=== PATIENT | male | born 1985 | race Caucasian/White ===

== ENCOUNTER 2019-05-12 15:47 | Emergency (ER) | payer SELFPAY ==
[~2019-05-12] VITALS: Ht 185 cm; Wt 118.0 kg
--- NOTE | 2019-05-12 16:16 | ED Chest Pain ---
General Chief Complaint: Chest Pain Stated Complaint: CHEST PAIN Nursing Triage Note: PT AMBULATE TO ROOM 09 WITHOUT DIFFICULTY. PT STATES CHEST PAIN STARTED THIS MORNING WHILE DRINKING COFFEE AND SMOKING A CIGARETTE. PT STATES THE PAIN RETURN SEVERAL TIMES TODAY AND NOW FEELS PRESSURE ON HIS CHEST. Nursing Sepsis Screen: No Definite Risk Source: patient Exam Limitations: no limitations History of Present Illness Date Seen by Provider: May 12, 2019 Time Seen by Provider: 16:12 Initial Comments To ER with sharp left-sided chest pain lasting 30-45 seconds at a time that has occurred 3-4 times today. Occasional shortness of breath. States he is otherwise healthy except for history of colon cancer. (Pathology and procedure report obtained from his colonoscopy at [facility] on 09/20/17. This shows colon polyp, 35cm polypectomy. Tubular adenoma measuring 1.5cm fully removed with stalk margin clear and no glandular atypia or malignancy identified) Timing/Duration: intermittent Severity/Quality: moderate Location: central Radiation: no radiation Activities at Onset: none ASA po EMAIL PRODUCTION SPECIALIST: No NTG SL EMAIL PRODUCTION SPECIALIST: No Allergies and Home Medications Patient Home Medication List Home Medication List Reviewed: Yes Review of Systems Review of Systems Constitutional: see HPI EENTM: No Symptoms Reported Respiratory: No Symptoms Reported Cardiovascular: No Symptoms Reported Gastrointestinal: See HPI Genitourinary: No Symptoms Reported Musculoskeletal: no symptoms reported Skin: no symptoms reported Psychiatric/Neurological: No Symptoms Reported Endocrine: No Symptoms Reported Hematologic/Lymphatic: No Symptoms Reported Past [id number]-[id number] Hx Patient Social History Alcohol Use: Past History Recreational Drug Use: No Smoking Status: Current Everyday Smoker Type Used: Cigars 2nd Hand Smoke Exposure: Yes Recent Foreign Travel: No Contact w/Someone Who Travel: No Recent Infectious Disease Expo: No Recent Hopitalizations: No Physical Abuse: No Sexual Abuse: No Mistreated: No Fear: No Seasonal Allergies Seasonal Allergies: No Past Medical History Surgeries: Yes Appendectomy Respiratory: No Cardiac: Yes Hypertension Neurological: No HIV/AIDS: No Genitourinary: No Gastrointestinal: Yes (POLYPS IN COLON) Polyps Musculoskeletal: Yes (BROKEN BONES IN BILAT HANDS) Fractures Endocrine: No HEENT: No Loss of Vision: Denies Hearing Impairment: Denies Cancer: Yes Colon Did You Recieve Any Treatments: No ADD/ADHD Integumentary: No Blood Disorders: No Physical Exam Vital Signs Vital Signs - First Documented 05/12/19 15:53 Temp 37.4 Pulse 89 Resp 18 B/P (MAP) 154/81 (105) Pulse Ox 98 O2 Delivery Room Air Capillary Refill : Less Than 3 Seconds Height, Weight, BMI Height: '" Weight: lbs. oz. kg; 34.00 BMI Method: General Appearance: No Apparent Distress, WD/WN Respiratory: Chest Non Tender, Lungs Clear, Normal Breath Sounds, No Accessory Muscle Use, No Respiratory Distress Cardiovascular: Regular Rate, Rhythm, Normal Peripheral Pulses Gastrointestinal: Normal Bowel Sounds, Non Tender, Soft Extremity: Normal Capillary Refill, Normal Inspection Neurologic/Psychiatric: Alert, Oriented x3 Skin: Normal Color, Warm/Dry Progress/Results/Core Measures Results/Orders My Orders Orders - RAYMUNDO MILLS APRN Chest Pa/Lat (2 View) (05/12/19 15:54) Ekg Tracing (05/12/19 15:54) Vital Signs/I&O 05/12/19 05/12/19 15:53 15:58 Temp 37.4 Pulse 89 Resp 18 B/P (MAP) 154/81 (105) Pulse Ox 98 O2 Delivery Room Air Room Air Blood Pressure Mean: 105 Departure Impression Primary Impression: Chest pain Qualified Codes: R07.9 - Chest pain, unspecified Disposition: 01 HOME, SELF-CARE Condition: Stable Departure-Patient Inst. Decision time for Depature: 16:16 Referrals: NO,LOCAL PHYSICIAN (PCP) Primary Care Physician Patient Instructions: Chest Pain That Is Not Caused by the Heart (DC) Add. Discharge Instructions: 1. Follow-up with your doctor next week 2. All discharge instructions reviewed with patient and/or family. Voiced understanding. RAYMUNDO MILLS APRN May 12, 2019 16:16
--- NOTE | 2019-05-12 16:28 | Diagnostic Imaging Report ---
Indication: Chest pain PA and lateral chest Heart size and pulmonary vascularity are normal. Lungs are clear. There are no effusions or pneumothoraces. Impression: Negative chest Dictated by: Dictated on workstation # [id number]
[2019-05-12 16:42] VITALS: BP 135/82
== END 2019-05-12 16:41 | disposition home or self-care (01) ==
LOC: EDUNIT# 15:47 → ER 15:51
DX: R07.9 Chest pain, unspecified (principal); I10 Essential (primary) hypertension; F90.9 Attention-deficit hyperactivity disorder, unspecified type; F17.290 Nicotine dependence, other tobacco product, uncomplicated; Z85.038 Personal history of other malignant neoplasm of large intestine; Z90.49 Acquired absence of other specified parts of digestive tract
CPT/HCPCS: 71046; 93005